=== PATIENT | male | born 1990 | race Caucasian/White ===

== ENCOUNTER 2016-11-29 08:22 | Emergency (ER) | payer OTHER ==
[~2016-11-29] VITALS: Ht 172.7 cm; Wt 96.0 kg
[2016-11-29 08:27] VITALS: Ht 172.7 cm; Wt 96.0 kg
[2016-11-29 09:56] LABS: BASOPHIL # 0.1 10^3/ul (0.0-0.1); BASOPHILS % 0.8 % (0.0-2.0); EOSINOPHILS # 0.2 10^3/ul (0.0-0.5); EOSINOPHILS % 3.1 % (0.0-7.0); HEMATOCRIT 46.1 % (42.0-52.0); LYMPHOCYTES # 2.1 10^3/ul (0.8-2.9); LYMPHOCYTES % 32.7 % (15.0-51.0); MEAN CORPUSCULAR HEMOGLOBIN 31.3 pg (29.0-33.0); MEAN CORPUSCULAR HGB CONC 34.7 g/dl (32.0-37.0); MEAN PLATELET VOLUME 9.7 fl (7.4-10.4); MONOCYTE # 0.7 10^3/ul (0.3-0.9); MONOCYTES % 11.5 % (0.0-11.0); NEUTROPHIL # 3.3 10^3/ul (1.6-7.5); NEUTROPHILS % 51.7 % (39.0-77.0); PLATELET COUNT 256 10^3/UL (140-415); RED BLOOD COUNT 5.12 10^6/ul (4.70-6.10); RED CELL DISTRIBUTION WIDTH 11.1 % (11.5-14.5); WHITE BLOOD COUNT 6.4 10^3/ul (4.8-10.8)
[2016-11-29 10:11] LABS: ADD UMIC NO; UR ASCORBIC ACID NEGATIVE (NEGATIVE); UR BILIRUBIN (Dip) NEGATIVE (NEGATIVE); UR BLOOD (Dip) NEGATIVE (NEGATIVE); UR CLARITY CLEAR (CLEAR); UR COLOR YELLOW (YELLOW); UR GLUCOSE (Dip) NEGATIVE (NEGATIVE); UR KETONES (Dip) NEGATIVE (NEGATIVE); UR LEUKOCYTE ESTERASE (Dip) NEGATIVE Leu/ul (NEGATIVE); UR NITRITE (Dip) NEGATIVE (NEGATIVE); UR SPECIFIC GRAVITY (Dip) 1.017 (1.003-1.030); UR TOTAL PROTEIN (Dip) NEGATIVE (NEGATIVE); UR UROBILINOGEN (Dip) NEGATIVE (NEGATIVE)
--- NOTE | 2016-11-29 10:13 | RADRPT ---
PROCEDURE: CT Abdomen and Pelvis without contrast. CLINICAL INDICATION: Right lower quadrant pain TECHNIQUE: CT scan of the abdomen and pelvis without contrast was performed on a multidetector hig h-resolution CT scanner. The patient was scanned without intravenous contrast. Coronal and sagittal reformatted images were obtained from the axial source images. Images were reviewed on a high-resol [employer] PACS workstation. The total exam CTDI equals 14.14 mGy and the total exam DLP equals 939.4 mGy -cm. One or more of the following dose reduction techniques were used: Automated exposure control. Adjustment of the mA and/or kV according to patient size. Use of iterative reconstruction technique. COMPARISON: None FINDINGS: CT abdomen: The lung bases are clear. The heart size is normal, without pericardial thickening or effusion. There is hepatomegaly with geographic fatty infiltration. The spleen is normal in size and homogeneo us in density. The stomach is partially collapsed, but is grossly unremarkable. The pancreas as vi sualized is normal. The gallbladder is unremarkable. There is no evidence for biliary dilatation. The adrenal glands are symmetric and normal. The kidneys are symmetrically unremarkable as well. N o renal calculus or obstructive uropathy or mass lesion is seen. The aorta is of normal caliber. There is no retroperitoneal lymphadenopathy. The lety hepatis reg ion is clear. The bowel is unremarkable. There are a few prominent lymph nodes in the right lower q uadrant measures up to [address] pelvis: The small bowel loops situated within the pelvis are unremarkable. There is a prominent appendix yamilka sures up to 9 mm in transverse diameter at the tip. The pelvic organs are normal. The pelvic sidew alls and inguinal regions are clear. The sigmoid colon and rectum are unremarkable. No mass, lymph adenopathy, or free fluid is seen. No acute inflammation is seen. No osteolytic or osteoblastic l esion is detected. IMPRESSION: 1. Prominent appendix with no significant periappendiceal inflammatory changes. This could be early appendicitis. Clinical correlation and short-term followup can be performed. 3. A few prominent mesenteric lymph nodes in the right lower quadrant. 4. Hepatomegaly with fatty infiltration. RPTAT: BB .Munir Copeland MD, Date Time Electronically viewed and signed by .Munir Copeland MD, MD on 11/29/2016 10:13 .O/
[2016-11-29 10:22] LABS: ALBUMIN 4.4 g/dl (3.3-4.9); ALBUMIN/GLOBULIN RATIO 1.37; BILIRUBIN,INDIRECT 0.4 mg/dl (0-1.1); BILIRUBIN,TOTAL 0.4 mg/dl (0.2-1.3); CALCIUM 9.4 mg/dl (8.4-10.2); CREATININE 0.93 mg/dl (0.61-1.24); POTASSIUM 4.4 mmol/L (3.5-5.1); TOTAL PROTEIN 7.6 g/dl (6.1-8.1)
--- NOTE | 2016-11-29 10:45 | ERD ---
ER Documentation Chief Complaint Date/Time DATE: 11/29/16 TIME: 10:38 Chief Complaint pt bib self with c/o abd pain starting on tuesday but constant (ANCELMO REILLY PA-C) HPI 26 year old male presents to emergency department complaining of right lower quadrant abdominal pain since Tuesday night. Patient states it is a constant sharp 2/10 pain. Admits to one episode of mild diarrhea. Denies fever, nausea, vomiting. Patient states he developed mild stretch diana on his right lower quadrant on Tuesday (ANCELMO REILLY PA-C) ROS All systems reviewed and are negative except as per history of present illness. (ANCELMO REILLY PA-C) Allergies Allergies: Coded Allergies: No Known Allergy (Unverified , 11/29/16) PMhx/Soc Medical and Surgical Hx: pt denies Medical Hx, pt denies Surgical Hx Hx Alcohol Use: No Hx Substance Use: No Hx Tobacco Use: No Smoking Status: Never smoker (ANCELMO REILLY PA-C) Physical Exam Vitals Vital Signs Date Time Temp Pulse Resp B/P Pulse Ox O2 Delivery O2 Flow Rate FiO2 11/29/16 12:00 98.3 66 20 142/62 98 Room Air 11/29/16 11:30 99.6 64 20 139/89 100 Room Air 11/29/16 08:27 97.9 80 16 153/92 98 (PATRICIA HOLDEN A. ) Physical Exam Const: WDWN Head: Atraumatic Eyes: Normal Conjunctiva ENT: Normal External Ears, Nose and Mouth. Neck: Full range of motion..~ No meningismus. Resp: Clear to auscultation bilaterally Cardio: Regular rate and rhythm, no murmurs Abd: Soft, tender RLQ, non distended. Normal bowel sounds Skin: No petechiae or rashes Back: No midline or flank tenderness Ext: No cyanosis, or edema Neur: Awake and alert Psych: Normal Mood and Affect (ANCELMO REILLY PA-C) Result Diagram: 11/29/16 0934 11/29/16 0934 Results 24 hrs Laboratory Tests Test 11/29/16 09:30 11/29/16 09:34 Urine Color YELLOW Urine Clarity CLEAR Urine pH 5.0 Urine Specific [place] 1.017 Urine Ketones NEGATIVEmg/dL Urine Nitrite NEGATIVEmg/dL Urine Bilirubin NEGATIVEmg/dL Urine Urobilinogen NEGATIVEmg/dL Urine Leukocyte Esterase NEGATIVELeu/ul Urine Hemoglobin NEGATIVEmg/dL Urine Glucose NEGATIVEmg/dL Urine Total Protein NEGATIVEmg/dl White Blood Count 6.410^3/ul Red Blood Count 5.1210^6/ul Hemoglobin 16.0g/dl Hematocrit 46.1% Mean Corpuscular Volume 90.0fl Mean Corpuscular Hemoglobin 31.3pg Mean Corpuscular Hemoglobin Concent 34.7g/dl Red Cell Distribution Width 11.1% Platelet Count 92973^3/UL Mean Platelet Volume 9.7fl Neutrophils % 51.7% Lymphocytes % 32.7% Monocytes % 11.5% Eosinophils % 3.1% Basophils % 0.8% Nucleated Red Blood Cells % 0.0/100WBC Neutrophils # 3.310^3/ul Lymphocytes # 2.110^3/ul Monocytes # 0.710^3/ul Eosinophils # 0.210^3/ul Basophils # 0.110^3/ul Nucleated Red Blood Cells # 0.010^3/ul Sodium Level 142mmol/L Potassium Level 4.4mmol/L Chloride Level 108mmol/L Carbon Dioxide Level 25mmol/L Anion Gap 13 Blood Urea Nitrogen 13mg/dl Creatinine 0.93mg/dl Glucose Level 100mg/dl Calcium Level 9.4mg/dl Total Bilirubin 0.4mg/dl Direct Bilirubin 0.00mg/dl Indirect Bilirubin 0.4mg/dl Aspartate Amino Transf (AST/SGOT) 26IU/L Alanine Aminotransferase (ALT/SGPT) 62IU/L Alkaline Phosphatase 72IU/L Total Protein 7.6g/dl Albumin 4.4g/dl Globulin 3.20g/dl Albumin/Globulin Ratio 1.37 Lipase 61U/L Current Medications Medications (Trade) Dose Ordered Sig/Ar Route PRN Reason Start Time Stop Time Status Last Admin Dose Admin Ertapenem/Sodium Chloride (Invanz/NS) 100 ml @ 200 mls/hr ONCE ONCE IVPB 11/29/16 11:00 11/29/16 11:29 DC 11/29/16 11:28 (PATRICIA HOLDEN DO) Procedures/MDM 26 year old male presents to emergency department complaining of right lower quadrant abdominal pain since Tuesday night. Patient may have early appendicitis, no evidence of perforation or abscess. Patient appears well, nontoxic, afebrile. No evidence of leukocytosis. CT abd and pelvis without contrast was done, radiologist stated: 1. Prominent appendix with no significant periappendiceal inflammatory changes. This could be early appendicitis. Clinical correlation and short-term followup can be performed. 3. A few prominent mesenteric lymph nodes in the right lower quadrant. 4. Hepatomegaly with fatty infiltration. I have consulted supervising physician who has evaluated patient and will consult surgery (ANCELMO REILLY PA-C) The patient was seen and evaluated by me. The patient states that he has had some right lower quadrant pain for a day and a half is getting worse. Describes constant dull without radiation. He has had some loose stool but no fever or vomiting. He states that he has had no back pain dysuria hematuria. Patient also developed some erythema to the right lower abdomen as well consistent with striae looking lesions. He had no true trauma to the abdomen whatsoever. No lack of appetite Const: Well-developed, well-nourished Head: Atraumatic, normocephalic Eyes: Normal Conjunctiva, PERRLA, EOMI, normal sclera, no nystagmus ENT: Normal External Ears, Nose and Mouth, moist mucus membranes. Neck: Full range of motion. No meningismus, no lymphadenopathy. Resp: Clear to auscultation bilaterally, no wheezing, rhonchi, rales Cardio: Regular rate and rhythm, no murmurs, S1 S2 present Abd: Soft, moderate right lower quadrant tenderness negative Rovsing non distended. Normal bowel sounds, no guarding or rebound, no pulsitile abdominal masses or bruits Skin: No petechiae or rashes, no ecchymosis , no maculopapular rash Back: No midline or flank tenderness Ext: No cyanosis, or edema, FROM x 4, normal inspection, neurovascularly intact x 4 Neur: Awake and alert, STR 5/5 x 4, sensation intact x 4, no focal findings, cerebellum intact Psych: Normal Mood and Affect CT scan shows no enlarged 9 mm appendix but no periappendiceal inflammatory changes. I called and spoke with Dr. Costa of general surgery he told me to admit the patient for a lap appendectomy. The patient however, must be transferred to [facility] for insurance purposes. He will be transferred in stable condition he is received Invanz 1 g IV (PATRICIA HOLDEN DO) Departure Diagnosis: Primary Impression: Appendicitis Appendicitis type: acute appendicitis Acute appendicitis type: unspecified acute appendicitis type Qualified Code: K35.80 - Acute appendicitis, unspecified acute appendicitis type Additional Impression: Abdominal pain Abdominal location: right lower quadrant Qualified Code: R10.31 - Right lower quadrant abdominal pain Condition: Stable ANCELMO REILLY PA-C Nov 29, 2016 10:45 PATRICIA HOLDEN DO Nov 29, 2016 12:15
[2016-11-29] MEDS ORDERED: ERTAPENEM SODIUM 1 GM in SOD CHLORIDE 0.9% 100 ML IVPB ONE (11:00)
[2016-11-29 13:30] VITALS: BP 104/73; PULSE 84; RESP 20; TEMP 98.3
== END 2016-11-29 14:24 | disposition short-term general hospital (02) ==
LOC: FTE 08:22
DX: K35.80 Unspecified acute appendicitis (principal); R40.2142 Coma scale, eyes open, spontaneous, at arrival to emergency department; R40.2252 Coma scale, best verbal response, oriented, at arrival to emergency department; R40.2362 Coma scale, best motor response, obeys commands, at arrival to emergency department
CPT/HCPCS: 74176; 80053; 81003; 83690; 85025; 96374; J1335; Z7502; Z7610